=== PATIENT | male | born 1950 | race Hispanic/Latino ===

== ENCOUNTER 2020-03-12 16:52 | Emergency (ER) | payer OTHER | END 2020-03-12 20:42 | disposition EXP | LOC: EDH 16:52 → EDBD 16:52 → EDH 20:42 | DX: U07.1 COVID-19 (principal); I46.9 Cardiac arrest, cause unspecified; R73.9 Hyperglycemia, unspecified | CPT/HCPCS: 36600; 82435; 82803; 82947; 83605; 84132; 84295; 85018; 87426; 92950 ==